=== PATIENT | female | born 1990 ===

== ENCOUNTER → 2018-09-11 | Day surgery (SDC) | payer OTHER ==
[2018-09-11] VITALS (9 sets, daily range): BP systolic 113–148; BP diastolic 62–76
[~2018-09-11] VITALS: Ht 174 cm; Wt 68.0 kg
[~2018-09-11] MED LIST: Bupivacaine 0.25% Inj 30ml INJ ONE; D5 1/2NS 1,000 ML IV SCH; Dexamethasone 4mg/ml vial ONE; DiphenhydrAMINE 50mg/ml Inj IVP PRN; Duramorph PF 5mg/10ml amp ONE; EPINEPHrine 1mg/1ml Amp ONE; HYDROcodone/Acetamin 5/325 tab ORAL PRN; HYDROmorphone 1mg/ml Carpuject SUBQ PRN; Kenalog-40 1ml Vial ONE; Ketorolac 30mg Inj IV PRN; Ketorolac 30mg Inj ONE; LR 1000ml 1,000 ML IVLG SCH; LR 1000ml ONE; Lidocaine 1% 10mg/ml/Epi 0.005mg/ml 30ml vial INJ ONE; Lidocaine 1% MPF 10mg/ml 5ml ONE; Meperidine 50mg/ml Inj(FOR RIGORS ONLY) IV PRN; Metoclopramide 10mg/2ml Inj IVP PRN; Midazolam 2mg/2ml Inj ONE; NEXPLANON68 MG SQ; NS Irrig 4000ml IRRIG ONE; Propofol 200mg/20ml IV ONE; TEMODAR250 MG PO; TransDerm Scop 1mg/72HR Patch TDERMAL ONE; Tylenol #3 tab (300mg/30mg) ORAL PRN; ceFAZolin 1gm IVPB IVPB ONE; celeBREX 200mg Cap **SURGERY PATIENTS ONLY ORAL ONE; fentaNYL 100 mcg/2 mL IV ONE; oxyCONTIN 20mg tab ORAL ONE
--- NOTE | 2018-09-11 07:44 | Pre-Procedure Note/Attestation ---
Pre-Procedure Note/Attestation Complete Prior to Procedure Planned Procedure: left Procedure Narrative: knee internal derangment, possible acl reconstruction, possible mensectomy Indications for Procedure Pre-Operative Diagnosis: left knee internal derangment Attestation I attest that I discussed the nature of the procedure; its benefits; risks and complications; and alternatives (and the risks and benefits of such alternatives ), prior to the procedure, with the patient (or the patient's legal disability representative). I attest that, if there was a reasonable possibility of needing a blood transfusion, the patient (or the patient's legal disability representative) was given the [facility] standardized written summary, pursuant to the Abhijeet Mikel Blood Safety Act ([place] Health and Safety Code # 1645, as amended). I attest that I re-evaluated the patient just prior to the surgery and that there has been no change in the patient's H&P, except as documented below: Turner Redmond MD Sep 11, 2018 07:44
--- NOTE | 2018-09-11 07:45 | Operative Note - PDOC ---
Operative Note Operative Note Pre-op Diagnosis: left knee internal derangment Procedure: see op report Post-op Diagnosis: same as pre-op plus Operative Findings: consistent w/pre-op dx studies Anesthesia: regional Specimen: none Complications: none Condition: stable Estimated Blood Loss: none Implant(s) used?: Yes Turner Redmond MD Sep 11, 2018 07:45
--- NOTE | 2018-09-11 17:01 | Anethesia Preoperative Eval ---
Anesthesia Pre-op PMH/ROS General Date of Evaluation: Sep 11, 2018 Time of Evaluation: 15:40 Anesthesiologist: Lizeth ASA Score: ASA 2 Mallampati Score Class I : Soft palate, uvula, fauces, pillars visible Class II: Soft palate, uvula, fauces visible Class III: Soft palate, base of uvula visible Class IV: Only hard plate visible Mallampati Classification: Class II Surgeon: Ruy Diagnosis: L knee pain Surgical Procedure: L knee scope Anesthesia History: none Family History: no anesthesia problems Allergies: Coded Allergies: No Known Allergies (Unverified , 09/11/18) Medications: see eMAR Patient NPO?: Yes Past Medical History Cardiovascular: Denies: HTN, CAD, PR, valve dz, arrhythmia, other Gastrointestinal/Genitourinary: Reports: GERD - mild; Denies: CRI, ESRD, other Neurologic/Psychiatric: Reports: depression/anxiety, other - s/p Sx for brain tumor in remission; Denies: dementia, CVA, TIA Endocrine: Denies: DM, hypothyroidism, steroids, other HEENT: Denies: cataract (L), cataract (R), glaucoma, NIGHTMUTE (L), NIGHTMUTE (R), other Hematology/Immune: Denies: anemia, DVT, bleeding disorder, other Musculoskeletal/Integumentary: Denies: OA, RA, DJD, DDD, edema, other Other: other PMH Narrative: as above PSxH Narrative: L radius ORIF, craniotomy for brain tumor Anesthesia Pre-op Phys. Exam Physician Exam Last Vital Signs Date Time Temp Pulse Resp B/P (MAP) Pulse Ox O2 Delivery O2 Flow Rate FiO2 09/11/18 11:22 Room Air 09/11/18 11:21 97.4 64 18 116/73 99 Constitutional: NAD Neurologic: CN 2-12 intact Cardiovascular: RRR, no M/R/G Respiratory: CTA Gastrointestinal: S/NT/ND Airway Exam Mallampati Score: Class II MO: full ROM: full Teeth: intact Dentures: no upper, no lower Anesthesia Pre-op A/P Labs see chart Urine Test Test 09/11/18 11:30 Urine HCG, Qualitative Negative (NEGATIVE) Studies Pre-op Studies: EKG Risk Assessment & Plan Assessment: ASA 2 Plan: GA with LMA Status Change Before Surgery: No Pre-Antibiotics Drug: Ancef 1gr. Decadron 8mg. Given Within 1 Hr of Incision: Yes Time Given: 16:12 Gus Stanley MD Sep 11, 2018 17:01
--- NOTE | 2018-09-11 17:03 | Immediate Post-Op Evaluation ---
Immediate Post-Op Evalulation Immediate Post-Op Evalulation Procedure: L knee arthroscopy meniscectomy Date of Evaluation: Sep 11, 2018 Time of Evaluation: 17:02 IV Fluids: 600 Blood Products: none Estimated Blood Loss: min Urinary Output: none Blood Pressure Systolic: 124 Blood Pressure Diastolic: 72 Pulse Rate: 74 Respiratory Rate: 20 O2 Sat by Pulse Oximetry: 98 Temperature (Fahrenheit): 97.6 Pain Score (1-10): 1 Nausea: No Vomiting: No Complications none Patient Status: awake, patent, none Hydration Status: adequate Gus Stanley MD Sep 11, 2018 17:03
--- NOTE | 2018-09-11 21:01 | Operative Note - Dictated ---
DATE OF OPERATION: 09/11/2018 PREOPERATIVE DIAGNOSES: 1. Left knee MCL sprain. 2. Left lateral compartment chondral damage. 3. Hypertrophic synovial/fat pad. POSTOPERATIVE DIAGNOSES: 1. Left knee MCL sprain. 2. Left lateral compartment chondral damage. 3. Hypertrophic synovial/fat pad. 4. Tear of the root of the posterior horn of medial meniscus. PROCEDURES: 1. Left knee diagnostic arthroscopy. 2. Left knee synovectomy, excision of fat pad medial, lateral, and patellofemoral compartment. SURGEON: Turner Redmond M.D. ANESTHESIA: MAC with local. INDICATION FOR PROCEDURE: The patient is a pleasant 28-year-old female, who had a significant injury to her left knee. Had evidence of MCL sprain as well as lateral femoral condyle and bony contusion. She has some laxity in the stability. She failed conservative treatment. She elected to undergo diagnostic arthroscopy with possible ACL reconstruction. Based on the intraoperative findings, additional treatment such as synovectomy, chondroplasty, and meniscectomy would also be discussed. Risks, limitations, expectations, and complications of procedure were discussed in detail. All questions were addressed. DESCRIPTION OF PROCEDURE: After informed consent was obtained, the patient was brought to the operating room, the patient was placed under general anesthesia. The patient's left leg was prepped and draped in a sterile manner. Time-out was performed. Ancef was administered. An inferolateral stab incision was then made. Trocar was introduced into the patellofemoral compartment. There was some hypertrophic fat pad and synovial tissue making visualization difficult. Medial gutter was entered and free of meniscal chondral damage. Medial compartment was entered. There was significant hypertrophic fat pad and synovial tissue. Medial working portal was established. Excision of fat pad and synovium was performed to better visualize the medial compartment, intercondylar notch, lateral compartment. The medial compartment was entered. The meniscus was probed. There was evidence of what appeared to be probably a root tear of the posterior horn of the medial meniscus. This was probed. Since it was not grossly detached or unstable, formal fixation was not required. The ACL was probed and noted to be intact with good attention. Lateral compartment was entered and free from the meniscal chondral damage. The camera was then placed in the patellofemoral compartment and excision of the fat pad and synovectomy was completed. Once that was done, the instruments were removed. Portal sites were closed using 3-0 Monocryl sutures. Steri-Strips and a sterile dressing were applied. The patient awoken and taken to recovery room with stable vital signs. ESTIMATED BLOOD LOSS: None. COMPLICATIONS: None. SPECIMENS: None. IMPLANTS: None. Turner Redmond M.D. DR: CLARKE JOB#: [id number] CC:
[2018-09-12 09:08] VITALS: BP 102/56
--- NOTE | 2018-09-12 09:08 | 48 Hour Post Anesthesia Eval ---
Post Anesthesia Evaluation Procedure: L knee arthroscopy meniscectomy Date of Evaluation: Sep 11, 2018 Time of Evaluation: 18:50 Blood Pressure Systolic: 102 0: 56 Pulse Rate: 62 Respiratory Rate: 20 Temperature (Fahrenheit): 97.6 O2 Sat by Pulse Oximetry: 98 Airway: patent Nausea: No Vomiting: No Pain Intensity: 1 Hydration Status: adequate Cardiopulmonary Status: stable Mental Status/LOC: patient returned to baseline Follow-up Care/Observations: n/a Post-Anesthesia Complications: none Follow-up care needed: ready to discharge Gus Stanley MD Sep 12, 2018 09:08
== END | disposition home or self-care (01) ==
LOC: SUR 09:52
DX: S83.422A Sprain of lateral collateral ligament of left knee, initial encounter (principal); M67.262 Synovial hypertrophy, not elsewhere classified, left lower leg; S83.242A Other tear of medial meniscus, current injury, left knee, initial encounter; X58.XXXA Exposure to other specified factors, initial encounter; Y92.9 Unspecified place or not applicable; K21.9 Gastro-esophageal reflux disease without esophagitis; F32.9 Major depressive disorder, single episode, unspecified; F41.9 Anxiety disorder, unspecified
CPT/HCPCS: 29876; 81025; J0690; J1100; J1885; J2250; J2405; J2704; J3010; J3301; 94003; 94150